=== PATIENT | female | born 2000 | race Caucasian/White ===

== ENCOUNTER 2020-08-23 10:45 | Outpatient (RCR) | payer OTHER, SELFPAY ==
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
[2020-08-14 14:32] VITALS: BMI 29.9
--- NOTE | 2020-08-14 14:49 | PC.ADMIT ---
Patient is a 19 year old female who was seen and referred by [employer] crisis to [facility] program d/t increase in depression and anxiety. Patient stated that she is her because, Anxiety control, I want help with, I'm empathetic and it overpowers my own problems, and a little clinical depression . Patient has a hard time saying no and setting boundaries as she often takes care of others and not herself. Stated that her father almost committed suicide and was seen at [facility] where patient works. She reports that this was very stressful for her. She stated this was unexpected. Patient reports that she recently fired her prescriber and has a new prescriber that she had an upcoming appointment with however she cancelled her appointment because she was coming to this program. I asked patient to call her new prescriber after she completes the program today and set up an appointment as she will need a prescriber upon d/c. Patient aware that she can take the day off from the program to attend prescriber appointments. Patient plans on calling the new prescriber to set up an appointment today. Patient presents with depressed mood anxious affect. Denied current SI. Asked who she could call if feeling unsafe and she stated [employer] crisis. Patient gave verbal permission to email her a copy of her safety plan. Reconciled medications with patient and patient's pharmacy. Patient reports she takes Buspar 10 mg 1 tab at [facility] instead of TID, last filled 05/17/20. Also last filled Ativan 0.5 mg 1-2 tabs on 05/02/20, patient stated she takes one tab weekly PRN. Patient stated her new prescriber will not prescribe Ativan. Also patient only taking Effexor ER 150 mg daily and has not taken the additional 37.5 mg tab as she is afraid to take as she thinks it is too much. June Delgado is aware of the aforementioned medication information.
--- NOTE | 2020-08-14 15:45 | PC.NURSE ---
Case opened in treatment team
--- NOTE | 2020-08-15 15:54 | PC.NURSE ---
Spoke with clients therapist Rosenda LIVE client started program, progress and planned DC date ( ).
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
--- NOTE | 2020-08-18 10:54 | PC.NURSE ---
Patient stated she saw her doctor yesterday and was prescribed medication for her canker sores on her tongue. She stated the canker sores appeared 2 weeks ago. She started Lamictal while in the program 3 days go. Patient stated she read her doctors note today about her visit yesterday which stated stop Lamictal. Patient denied px hx of Lamictal prescription. Reviewed the aforementioned information with June Delgado CATEGORY DIRECTOR who stated hold the medication as a precaution and will f/u with patient on Friday as the patient is not here on Friday. Spoke to patient and told her to hold the Lamictal and will schedule appointment to be seen on Friday.
--- NOTE | 2020-08-22 13:06 | HO.PSYCHPN ---
Subjective Subjective Date of Service: 08/22/20 Reason For Visit: depression Interim History: Pt reports not feeling well due to migraines. She describes mood as unstable and emotional. Pt reports becoming easily dysregulated. Mental Status Exam Mental Status Exam Narrative: Appearance: casually groomed, fair hygiene, in NAD Behavior: cooperative Psychomotor: no agitation or retardation noted Speech: clear, normal rate/rhythm/volume, spontaneous TP: linear TC: no signs of psychosis, hopeless, depressed, no SI Mood: depressed Affect; blunted, congruent VH/AH: none Delusions: none Insight/judgment: fair x 2. Memory/cog: alert, oriented x 3. grossly intact to conversational testing. Diagnostics Vital Signs (24Hr): Body Mass Index 29.9 Medications Allergies Allergies Allergy/AdvReac Type Severity Reaction Status Date / Time No Known Allergies Allergy Verified 08/14/20 14:24 [No Known Allergies*] Assessment & Plan Assessment & Plan (1) MDD (major depressive disorder), recurrent episode, moderate: Status: Acute Code(s): F33.1 - Major depressive disorder, recurrent, moderate Assessment and Plan: MDD versus Bipolar type 2. We discussed continuing Effexor, considering adding Lamictal 25mg po qhs- which pt agreed. We discussed potential s/e of rash. Pt agrees to report any new rashes. She also wanted to try trazodone for sleep, and d/c hydroxyzine due to weight gain. Start trazodone 50mg po qhs. Greater than 50% of the session was spent on counseling and/or coordination of care
--- NOTE | 2020-08-22 16:05 | PC.NURSE ---
I called and left a message with Clau Woodruff RE referral for DBT group for the client
--- NOTE | 2020-08-23 08:25 | HO.PHPPROGNO ---
Subjective Subjective Date of Service: 08/23/20 Reason For Visit: depression Interim History: Pt reports feeling emotional and dysregulated. She reports becoming easily distressed and tearful with things like waiting on phone to speak with [employer]. She reports sleeping and eating well. She denies VH/AH. She denies SI/HI. She had mouth sores that worsened with lamictal. She was seen by her PCP who recommended to stop Lamictal, which she did. We discussed adding trileptal instead, which she agrees. Medication Compliance: Yes Side effects from medications: No Review of Systems Review of Systems Yes all other systems are reviewed and are negative Mental Status Exam Mental Status Exam Narrative: Appearance: casually groomed, fair hygiene, in NAD Behavior: cooperative Psychomotor: no agitation or retardation noted Speech: clear, normal rate/rhythm/volume, spontaneous TP: linear TC: no signs of psychosis, hopeless, depressed, no SI Mood: depressed Affect; blunted, congruent VH/AH: none Delusions: none Insight/judgment: fair x 2. Memory/cog: alert, oriented x 3. grossly intact to conversational testing. Diagnostics Vital Signs (24Hr): Body Mass Index 29.9 Assessment & Plan Assessment & Plan (1) MDD (major depressive disorder), recurrent episode, moderate: Status: Acute Code(s): F33.1 - Major depressive disorder, recurrent, moderate Assessment and Plan: MDD versus Bipolar type 2. 1. Continue Effexor 2. Stop lamictal due to rash 3. Start trileptal 300mg po qhs. Certification I certify that partial hospital treatment is medically necessary due to the symptoms and problems resulting from the patient's mental illness and the failure to treat the patient at the partial hospital level of care would likely result in the patient requiring inpatient psychiatric care which could not be prevented at a less intensive level of care. Greater than 50% of the session was spent on counseling and/or coordination of care Discharge Plan Discharge Attending provider: Ace White Medications: New trazodone 50 mg tablet 50 mg PO BEDTIME Qty: 14 RF: 0 oxcarbazepine [Trileptal] 300 mg tablet 300 mg PO BEDTIME Qty: 10 RF: 0 Discontinued buspirone [BuSpar] 10 mg Tablet 10 mg PO BEDTIME RF: 0 No Action lorazepam [Ativan] 0.5 mg Tablet 0.5 - 1 mg PO DAILY PRN (Reason: Anxiety) RF: 0 hydroxyzine HCl 25 mg Tablet 25 - 50 mg PO BEDTIME PRN (Reason: Anxiety) RF: 0 venlafaxine 150 mg Tablet Extended Release 24hr 150 mg PO BEDTIME RF: 0 Emgality Pen 120 mg/mL Pen Injector 120 mg SUBCUT QMONTH RF: 0 ibuprofen [Motrin] 800 mg Tablet 800 mg PO DAILY PRN (Reason: Pain) RF: 0 Telehealth Telehealth Location of provider rendering services: practice address Location of patient: address on file Patient Identification confirmed using: Name, : Yes Telehealth method: video Patient verbally consented to treatment: Yes Patient verbally consented to billing insurance company: Yes Patient informed of any privacy concerns related to visit: Yes Time spent with patient (mins): 15
--- NOTE | 2020-08-24 14:49 | PC.NURSE ---
The client joined the first part of community meeting and stated she couldn't attend today because of mouth pain. She will be back tmorrow
--- NOTE | 2020-08-25 14:45 | PC.NURSE ---
case closed in treatment team
--- NOTE | 2020-08-25 14:49 | PC.NURSE ---
Reviewed dc plan with client and called clients therapist Rosenda Bautista to inform her of client discharge
--- NOTE | 2020-08-25 15:15 | PC.NURSE ---
Clients therapist Rosenda Raman called and informed about clients discharge and plans for aftercare.
== END 2020-08-23 23:55 | disposition home or self-care (01) ==
LOC: HO.PHPA 10:45
PROVIDERS: Visit Provider Psychiatry & Neurology Psychiatry
DX: F33.1 Major depressive disorder, recurrent, moderate (principal); Z79.899 Other long term (current) drug therapy
CPT/HCPCS: 90791; 90853